=== PATIENT | female | born 1970 | race Caucasian/White ===

== ENCOUNTER 2021-05-06 02:55 | Observation (INO) ==
[2021-05-06] MEDS ORDERED: IOPAMIDOL 100 ML BOTTLE IV ONE (02:56)
--- NOTE | 2021-05-06 03:07 | Emergency Department Note ---
HPI General Chief complaint: Abdominal Pain Stated complaint: abd pain Time Seen by Provider: 05/06/21 03:07 Source: patient Mode of arrival: ambulatory Limitations: no limitations History of Present Illness HPI Narrative: 50-year-old female with no past medical history presenting with right upper quadrant abdominal pain. She states around 8:30 PM she developed sharp pain just below her rib cage on the right side. She endorses nausea and nonbloody, nonbilious emesis. Pain does not radiate. No shortness of breath, fever, dysuria, hematuria, or diarrhea. History of and hysterectomy, no other abdominal surgeries. Denies any known history of gallstone disease. She took Zofran and ibuprofen at home with some relief but the pain is coming back. Related Data Home Medications Medication Instructions Recorded Confirmed ibuprofen 600 mg tablet 600 mg PO QDAY PRN tab 01/14/18 03/14/21 calcium acetate PO QDAY 01/17/18 03/14/21 magnesium PO QDAY 01/17/18 03/14/21 aspirin 81 mg tablet,delayed 81 mg PO QDAY 03/14/21 03/14/21 release cholecalciferol (vitamin D3) 50 50 mcg PO QDAY 03/14/21 03/14/21 mcg (2,000 unit) capsule Allergies Allergy/AdvReac Type Severity Reaction Status Date / Time cat dander Allergy Unknown Sneezing Verified 03/14/21 10:13 hay Allergy Unknown Sneezing Uncoded 03/14/21 10:13 Review of Systems ROS ROS Narrative: Narrative: Constitutional: Denies fever or chills Cardiovascular: Denies chest pain Respiratory: Denies shortness of breath Gastrointestinal: Reports abdominal pain, nausea and vomiting; Denies diarrhea Genitourinary: Denies dysuria or hematuria Musculoskeletal: Denies back pain Integumentary: Denies rash Neurological: Denies headache PFSH Narrative Patient History Narrative: Narrative: Medical/Surgical/Family History All Active Problems (Updated 05/06/21 @ 06:39 by Jalen Maria MD) Acute calculous cholecystitis (Acute) Neck muscle spasm (Acute) Vitamin D deficiency (Acute) Fatigue (Acute) Cervical fusion syndrome (Chronic ~04/24/14) Migraines (Chronic) Insomnia (Chronic) Anxiety (Chronic) Medical History (Updated 05/06/21 @ 06:39 by Jalen Maria MD) Anxiety Cervical fusion syndrome (~04/24/14) Insomnia Migraines Surgical History History of hysterectomy (~10/05/13) Previous section (~04/29/12) Family History Grandfather Cancer Paternal Grandmother Dementia Paternal Stroke Paternal Father Hypertension Sister Thyroid disease Social History Smoking Status: Never smoker Alcohol Intake Frequency: holiday/special occasion only Substance Use: does not use Exam Narrative Narrative: Narrative: General Limitations: no limitations General appearance: Present alert and other (Appears uncomfortable) Head Head: Present atraumatic and normocephalic Eye Eye: Present normal appearance and EOMI; Absent scleral icterus or conjunctival injection ENT ENT: Present mucous membranes moist Neck Neck: Present normal inspection, full ROM and trachea midline Chest Chest: Present symmetric chest wall rise Adbominal Abdominal: Present soft and tenderness (Right upper quadrant tenderness to palpation); Absent distention, guarding, rebound or rigidity Extremities Extremities: Present normal inspection Neurological Neurological: Present alert and oriented X3; Absent motor sensory deficit Psychiatric Psychiatric: Present normal affect and normal mood Skin Skin: Present warm (WNL) and dry Course Consultations Consultation #1: Dr. Overton, general surgery Time: 04:20 Vital Signs Vital signs: Vital Signs Temperature 96.5 F L 05/06/21 02:56 Pulse Rate 98 H 05/06/21 02:56 Respiratory Rate 20 05/06/21 02:56 Blood Pressure 146/103 05/06/21 02:56 Pulse Oximetry (%) 100 05/06/21 02:56 Temperature 96.5 F L 05/06/21 02:56 Pulse Rate 70 05/06/21 05:49 Respiratory Rate 18 05/06/21 04:30 Blood Pressure 124/94 05/06/21 05:49 Pulse Oximetry (%) 100 05/06/21 05:[address] [facility] MDM Narrative Medical decision making narrative: 50-year-old female presenting with right upper quadrant abdominal pain. She does have moderate tenderness on exam without peritoneal signs. Concern for c holelithiasis or cholecystitis. IV Toradol, Zofran, and normal saline bolus ordered. Will obtain labs and CT abdomen to evaluate. 0640: Labs notable for a leukocytosis to 13.1. CT of the abdomen shows cholecystitis with a 3 mm stone in the gallbladder lumen and mild wall thickening. Patient received 2 mg of IV morphine x2 but is still havingpain. Fentanyl 75mcg ordered. Patient given 3.375g of IV Zosyn. I spoke with Dr. Overton of surgery who will evaluate the patient and admit. Patient made NPO. Lab Data Lab results reviewed: Yes I reviewed the patient's lab results. Result diagrams: 05/06/21 03:18 05/06/21 03:18 Labs: Lab Results 05/06/21 05/06/21 Range/Units 03:18 03:18 WBC 13.1 H (4.5-11.0) K/mcL RBC 4.95 (3.59-5.38) M/mcL Hgb 14.3 (11.2-15.7) g/dL Hct 43.1 (34.1-44.9) % MCV 87.1 (80.0-100.0) fL MCH 28.9 (26.0-34.0) pg MCHC 33.2 (31.0-36.0) g/dL RDW 12.3 (11.5-14.5) % Plt Count 312 (140-440) K/mcL MPV 8.7 (7.4-10.4) fL Neut % (Auto) 52.8 (38.0-78.0) % Lymph % (Auto) 37.5 (15.5-49.0) % [place] % (Auto) 7.0 (1.0-12.0) % Eos % (Auto) 2.4 (0.0-7.0) % Baso % (Auto) 0.3 (0.0-2.0) % Lymph # (Auto) 4.89 H (1.50-4.80) K/mcL [place] # (Auto) 0.91 H (0.10-0.90) K/mcL Eos # (Auto) 0.31 (0.00-0.70) K/mcL Baso # (Auto) 0.04 (0.00-0.30) K/mcL Absolute Neutrophils 6.90 (1.80-8.00) K/mcL Sodium 137 (133-145) mmol/L Potassium 4.2 (3.3-5.1) mmol/L Chloride 98 (96-108) mmol/L Carbon Dioxide 26 (22-30) mmol/L Anion Gap 13.0 (8.0-16.0) BUN 17 (6-20) mg/dL Creatinine 0.7 (0.6-1.1) mg/dL GFR Calculation 101 Glucose 104 (70-105) mg/dL Calcium 9.6 (8.6-10.4) mg/dL Total Bilirubin 0.5 (0.1-1.0) mg/dL AST 25 (<32) U/L ALT 28 (<40) U/L Alkaline Phosphatase 100 (39-117) U/L Total Protein 7.6 (5.9-8.4) gm/dL Albumin 4.3 (3.2-5.2) gm/dL Globulin 3.3 (2.2-3.7) gm/dL Albumin/Globulin Ratio 1.3 (1.0-2.3) Lipase 34 (7-60) U/L Radiology Data Radiology results reviewed: Yes I reviewed the patient's radiology results. Radiology results narrative: Ordering Physician:Jalen Maria M.D. Date of Service:05/06/21 Procedure(s):CT abdomen pelvis w con CLINICAL INFORMATION: Right upper quadrant pain and vomiting COMPARISON: None. TECHNIQUE: Following enteric contrast, 80 cc of Isovue-370 were injected intravenously, and 60 seconds later, 0.625 mm helical slices were obtained from the mid heart through the subtrochanteric regions. Following reconstruction, 2.5 mm sagittal, coronal and axial reformatted images were processed and reviewed at bone, lung and soft tissue windows. Five minutes later, 0.625 mm helical slices were obtained from the mid heart through the kidneys and viewed at soft tissue windows.The exam was performed using radiation dose optimization techniques including, but not limited to, automated exposure control, adjustment of the mA and/or kV according to patient size and use of iterative reconstruction technique. FINDINGS: The lung bases are clear. No effusions. The visualized heart is grossly normal. Abdominal images show the gallbladder is mildly enlarged with mild wall thickening. There is a single 3 mm cholesterol stone within the gallbladder body. The intrahepatic and common bile ducts are normal caliber: CBD is 6 mm. The liver, both kidneys, adrenal glands, spleen, pancreas and aorta, including aortic branches, are normal in size, configuration and attenuation without focal lesion. There is no free air, free fluid or adenopathy. Pelvic images show normal urinary bladder. Uterus is surgically absent. There is a 4 cm simple cyst on the retained left ovary. A 3.4 cm simple cyst is noted on the right ovary. The stomach, small bowel, appendix and large bowel are grossly normal. Bone windows show no osseous abnormality IMPRESSION: 1. Cholecystitis. Single 3 mm stone within the gallbladder lumen. 2. Uterus surgically absent. 4 cm simple cyst on the left ovary. 3.4 cm simple cyst on the right ovary. These do not require additional imaging follow-up Interpreted and Authenticated by: Amilcar Persaud 05/06/21 Discharge Plan Patient/Caregiver Discharge Instructions Pt seen by THEOLOGY TEACHER/PA only: No Clinical Impression: Acute calculous cholecystitis Patient Disposition: Xfer As Inpt ([facility]) Condition: Fair Follow up with: Jo Blackwell PA-C [Primary Care Provider] - Prescriptions: No Action ibuprofen 600 mg tablet 600 mg PO QDAY PRN0RF magnesium PO QDAY 0RF calcium acetate PO QDAY 0RF cholecalciferol (vitamin D3) 50 mcg (2,000 unit) capsule 50 mcg PO QDAY 0RF aspirin 81 mg tablet,delayed release (DR/EC) 81 mg PO QDAY 0RF
[2021-05-06] MEDS ORDERED: 0.9 % SODIUM CHLORIDE 1,000 ML IV ONE (03:11)
[2021-05-06] MEDS ORDERED: KETOROLAC 30 MG/ML VIAL IV ONE (03:11)
[2021-05-06] MEDS ORDERED: ONDANSETRON 4 MG/2 ML VIAL IV ONE ×2 (03:11→04:25)
[2021-05-06 03:48] LABS: Basophils # (Auto) 0.04 K/mcL (0.00-0.30); Basophils % (Auto) 0.3 % (0.0-2.0); Eosinophils # (Auto) 0.31 K/mcL (0.00-0.70); Eosinophils % (Auto) 2.4 % (0.0-7.0); Hematocrit 43.1 % (34.1-44.9); Hemoglobin 14.3 g/dL (11.2-15.7); Lymphocytes # (Auto) 4.89 K/mcL (1.50-4.80); Lymphocytes % (Auto) 37.5 % (15.5-49.0); Mean Cell Volume 87.1 fL (80.0-100.0); Mean Corpuscular HGB Conc 33.2 g/dL (31.0-36.0); Mean Platelet Volume 8.7 fL (7.4-10.4); Monocytes # (Auto) 0.91 K/mcL (0.10-0.90); Neutrophils % (Auto) 52.8 % (38.0-78.0); Platelet Count 312 K/mcL (140-440); RBC 4.95 M/mcL (3.59-5.38); Red Cell Distribution Width 12.3 % (11.5-14.5); WBC 13.1 K/mcL (4.5-11.0)
--- NOTE | 2021-05-06 03:49 | Cat Scan Report ---
CLINICAL INFORMATION: Right upper quadrant pain and vomiting COMPARISON: None. TECHNIQUE: Following enteric contrast, 80 cc of Isovue-370 were injected intravenously, and 60 seconds later, 0.625 mm helical slices were obtained from the mid heart through the subtrochanteric regions. Following reconstruction, 2.5 mm sagittal, coronal and axial reformatted images were processed and reviewed at bone, lung and soft tissue windows. Five minutes later, 0.625 mm helical slices were obtained from the mid heart through the kidneys and viewed at soft tissue windows.The exam was performed using radiation dose optimization techniques including, but not limited to, automated exposure control, adjustment of the mA and/or kV according to patient size and use of iterative reconstruction technique. FINDINGS: The lung bases are clear. No effusions. The visualized heart is grossly normal. Abdominal images show the gallbladder is mildly enlarged with mild wall thickening. There is a single 3 mm cholesterol stone within the gallbladder body. The intrahepatic and common bile ducts are normal caliber: CBD is 6 mm. The liver, both kidneys, adrenal glands, spleen, pancreas and aorta, including aortic branches, are normal in size, configuration and attenuation without focal lesion. There is no free air, free fluid or adenopathy. Pelvic images show normal urinary bladder. Uterus is surgically absent. There is a 4 cm simple cyst on the retained left ovary. A 3.4 cm simple cyst is noted on the right ovary. The stomach, small bowel, appendix and large bowel are grossly normal. Bone windows show no osseous abnormality IMPRESSION: 1. Cholecystitis. Single 3 mm stone within the gallbladder lumen. 2. Uterus surgically absent. 4 cm simple cyst on the left ovary. 3.4 cm simple cyst on the right ovary. These do not require additional imaging follow-up Interpreted and Authenticated by: Amilcar Persaud 05/06/21
[2021-05-06 04:02] LABS: ALT/SGPT 28 U/L (<40); AST/SGOT 25 U/L (<32); Albumin 4.3 gm/dL (3.2-5.2); Albumin/Globulin Ratio 1.3 (1.0-2.3); Alkaline Phosphatase 100 U/L (39-117); Bilirubin,Total 0.5 mg/dL (0.1-1.0); Blood Urea Nitrogen 17 mg/dL (6-20); Calcium 9.6 mg/dL (8.6-10.4); Carbon Dioxide 26 mmol/L (22-30); Chloride 98 mmol/L (96-108); Globulin 3.3 gm/dL (2.2-3.7); Glomerular Filtration Rate 101; Glucose 104 mg/dL (70-105)
[2021-05-06] MEDS ORDERED: morphine 2 MG/ML VIAL IV ONE ×2 (04:15→05:21)
[2021-05-06] MEDS ORDERED: PIPERACILLIN SODIUM/TAZOBACTAM 3.375 GM in DEXTROSE 5% IN WATER 50 ML IV ONE (04:15)
[2021-05-06] MEDS ORDERED: fentaNYL 100 MCG/2 ML VIAL IV ONE ×2 (05:48→12:50)
[2021-05-06] MEDS ORDERED: HYDROmorphone 0.5 MG/0.5 ML SYRINGE IV PRN ×2 (07:47→14:04)
[2021-05-06] MEDS ORDERED: ONDANSETRON 4 MG/2 ML VIAL IV PRN (07:49)
[2021-05-06] MEDS ORDERED: DEXTROSE 5%-LR 1,000 ML IV SCH (08:00)
[2021-05-06] MEDS ORDERED: HYDROmorphone 1 MG/ML SYRINGE ONE ×2 (08:17→12:50)
[2021-05-06] MEDS ORDERED: SCOPOLAMINE 1 PATCH PATCH TOPICAL ONE (08:41)
--- NOTE | 2021-05-06 08:51 | General Surgery Consult Note ---
HPI Data of Consult Patient: new to practice Consult date: 05/06/21 Requesting physician: Jalen Maria Primary Care Provider: Jo Blackwell PA-C Consult Narrative Chief complaint: RUQ Abdominal Pain Reason for consult: Acute Cholecystitis History of present illness: Sofia is seen in consultation today with a 6-8 hour history of intensifying RUQ and Upper Abdominal Pain. She came into the ER in the middle of the night and a CT scan was done demonstrating mild inflammatory changes around the gallbladder consistent with Cholecystitis. She recalls one prior similar bout of this 4-5 months ago that lasted several hours and then fully resolved. This has not improved. She denies any other episodes. Her health is otherwise excellent and she denies any cardiopulmonary issues. She is not on any oral anticoagulation. She has had a prior C Section and a prior Transvaginal Partial Hysterectomy. cc:: CC: Alfredo Overton MD Review of Systems All systems: reviewed and no additional remarkable complaints except as stated PFSH PFSH All Active Problems (Updated 05/06/21 @ 06:39 by Jalen Maria MD) Acute calculous cholecystitis (Acute) Neck muscle spasm (Acute) Vitamin D deficiency (Acute) Fatigue (Acute) Cervical fusion syndrome (Chronic ~04/24/14) Migraines (Chronic) Insomnia (Chronic) Anxiety (Chronic) Medical History (Updated 05/06/21 @ 06:39 by Jalen Maria MD) Anxiety Cervical fusion syndrome (~04/24/14) Insomnia Migraines Surgical History History of hysterectomy (~10/05/13) Previous section (~04/29/12) Family History Grandfather Cancer Paternal Grandmother Dementia Paternal Stroke Paternal Father Hypertension Sister Thyroid disease Social History marital status: other: Children-4 alcohol intake frequency: holiday/special occasion only substance use type: does not use MEDS/ALLERGIES Home Medications and Allergies Home Medications Medication Instructions Recorded Confirmed Type ibuprofen 600 mg tablet 600 mg PO QDAY tab 01/14/18 03/14/21 History calcium acetate PO QDAY 01/17/18 03/14/21 History magnesium PO QDAY 01/17/18 03/14/21 History cholecalciferol (vitamin D3) 50 50 mcg PO QDAY 03/14/21 03/14/21 History mcg (2,000 unit) capsule Allergies Allergy/AdvReac Type Severity Reaction Status Date / Time No Known Drug Allergies Allergy Unverified 05/06/21 08:07 Physical Examination Vital Signs Vital signs: Temp Pulse Resp BP Pulse Ox 98.7 F 82 20 140/72 98 05/06/21 07:30 05/06/21 07:30 05/06/21 07:30 05/06/21 07:30 05/06/21 07:30 General physical appearance General physical exam: well developed, well nourished and other (she appears uncomfortable ) Eyes Eye exam: normal ocular movement; negative icteric ENT ENT exam: normal pinna; negative nasal discharge Head Head exam IM: Present atraumatic, normal inspection and normocephalic Neck Neck exam: no masses, trachea midline and no lymphadenopathy Cardiovascular Cardiovascular exam IM: Present normal rate and rhythm and RRR Respiratory Respiratory exam: normal respiratory effort Abdomen Abdomen: Present soft (soft and non distended, TTP RUQ, no obvious peritoneal findings, no mass ) Integumentary Integumentary: Present other (normal appearing intact skin ) Neurologic Neurologic: Present other (grossly intact, fully alert and conversant ) Psychiatric Psychiatric: Present oriented to time, oriented to person and oriented to place Results Labs Result diagrams: 05/06/21 03:18 05/06/21 03:18 Labs: Abnormal lab results 05/06/21 Range/Units 03:18 WBC 13.1 H (4.5-11.0) K/mcL Lymph # (Auto) 4.89 H (1.50-4.80) K/mcL [place] # (Auto) 0.91 H (0.10-0.90) K/mcL Diabetes panel 05/06/21 Range/Units 03:18 Sodium 137 (133-145) mmol/L Potassium 4.2 (3.3-5.1) mmol/L Chloride 98 (96-108) mmol/L Carbon Dioxide 26 (22-30) mmol/L BUN 17 (6-20) mg/dL Creatinine 0.7 (0.6-1.1) mg/dL Glucose 104 (70-105) mg/dL Calcium 9.6 (8.6-10.4) mg/dL AST 25 (<32) U/L ALT 28 (<40) U/L Alkaline Phosphatase 100 (39-117) U/L Total Protein 7.6 (5.9-8.4) gm/dL Albumin 4.3 (3.2-5.2) gm/dL Calcium panel 05/06/21 Range/Units 03:18 Calcium 9.6 (8.6-10.4) mg/dL Albumin 4.3 (3.2-5.2) gm/dL Pituitary panel 05/06/21 Range/Units 03:18 Sodium 137 (133-145) mmol/L Potassium 4.2 (3.3-5.1) mmol/L Chloride 98 (96-108) mmol/L Carbon Dioxide 26 (22-30) mmol/L BUN 17 (6-20) mg/dL Creatinine 0.7 (0.6-1.1) mg/dL Glucose 104 (70-105) mg/dL Calcium 9.6 (8.6-10.4) mg/dL Adrenal panel 05/06/21 Range/Units 03:18 Sodium 137 (133-145) mmol/L Potassium 4.2 (3.3-5.1) mmol/L Chloride 98 (96-108) mmol/L Carbon Dioxide 26 (22-30) mmol/L BUN 17 (6-20) mg/dL Creatinine 0.7 (0.6-1.1) mg/dL Glucose 104 (70-105) mg/dL Calcium 9.6 (8.6-10.4) mg/dL Total Bilirubin 0.5 (0.1-1.0) mg/dL AST 25 (<32) U/L ALT 28 (<40) U/L Alkaline Phosphatase 100 (39-117) U/L Total Protein 7.6 (5.9-8.4) gm/dL Albumin 4.3 (3.2-5.2) gm/dL All other labs normal. A/P Narrative A/P Narrative: Acute Cholecystitis Recommend proceeding to the OR [facility] for Cholecystectomy Risks, benefits, potential complications and alternative treatment options are all discussed and reviewed at length including but not limited to possible conversion to open, partial or subtotal fenestrating cholecystectomy, drain placement, injury to surrounding structures, unexpected findings, and others as well NPO, IVF, IV ABs and pain control until surgery Time Spent With Patient Time: Total time spent is greater than 50% in coordination of care (as documented) at patient's floor/unit and/or counseling patient:
[2021-05-06] MEDS ORDERED: IPRATROPIUM/ALBUTEROL 3 ML AMPUL.NEB NEB PRN ×2 (10:14→14:04)
[2021-05-06] MEDS: HYDROmorphone 0.5 MG/0.5 ML SYRINGE IV PRN ×2 (10:20→11:25)
[2021-05-06] MEDS: PIPERACILLIN SODIUM/TAZOBACTAM 3.375 GM in DEXTROSE 5% IN WATER 50 ML IV SCH ×3 (11:25→23:55)
[2021-05-06] MEDS ORDERED: KETAMINE 50 MG/ML Syringe (ANEST) IV ONE (12:50)
[2021-05-06] MEDS ORDERED: GLYCOPYRROLATE 0.2 MG/ML VIAL IV ONE (12:50)
[2021-05-06] MEDS ORDERED: PROPOFOL 500 MG/50 ML BOTTLE IV ONE (12:50)
[2021-05-06] MEDS ORDERED: MIDAZOLAM 2 MG/2 ML VIAL ONE (12:50)
[2021-05-06] MEDS ORDERED: SUGAMMADEX SODIUM 200 MG/2 ML VIAL IV ONE (12:50)
[2021-05-06] MEDS ORDERED: TRANEXAMIC ACID 1,000 MG/10 ML VIAL ONE (12:50)
[2021-05-06] MEDS ORDERED: SUCCINYLCHOLINE 20 MG/ML ML IV ONE (12:50)
[2021-05-06] MEDS ORDERED: DEXAMETHASONE 10 MG/ML VIAL ONE (12:50)
[2021-05-06] MEDS ORDERED: ROCURONIUM 10 MG/ML ML IV ONE (12:50)
[2021-05-06] MEDS ORDERED: MAGNESIUM SULFATE 2 GM/50 ML BAG IV ONE (12:50)
[2021-05-06] MEDS ORDERED: FAMOTIDINE/PF 20 MG/2 ML VIAL IV ONE (12:50)
[2021-05-06] MEDS ORDERED: LIDOCAINE HCL/PF 100 MG/5 ML SYRINGE IV ONE (12:50)
[2021-05-06] MEDS ORDERED: ONDANSETRON 4 MG/2 ML VIAL ONE (12:50)
[2021-05-06] MEDS ORDERED: diphenhydrAMINE 50 MG/ML VIAL ONE (12:50)
[2021-05-06] MEDS ORDERED: KETOROLAC 15 MG/ML VIAL ONE (12:50)
[2021-05-06] MEDS ORDERED: FLUMAZENIL 0.1 MG/ML ML IV PRN (14:04)
[2021-05-06] MEDS ORDERED: LABETALOL 5 MG/ML ML IV PRN (14:04)
[2021-05-06] MEDS ORDERED: METOPROLOL TARTRATE 5 MG/5 ML VIAL IV PRN (14:04)
[2021-05-06] MEDS ORDERED: BENZOCAINE/MENTHOL 1 LOZENGE PO PRN (14:04)
[2021-05-06] MEDS ORDERED: ACETAMINOPHEN 1,000 MG/100 ML BAG IV ONE (14:04)
[2021-05-06] MEDS ORDERED: NALOXONE HCL 0.4 MG/ML VIAL IV PRN (14:04)
[2021-05-06] MEDS ORDERED: LACTATED RINGERS 250 ML IV PRN (14:04)
[2021-05-06] MEDS ORDERED: PROMETHAZINE 25 MG/ML VIAL IV PRN (14:04)
[2021-05-06] MEDS ORDERED: METHOCARBAMOL 1,000 MG/10 ML VIAL IV PRN (14:04)
[2021-05-06] MEDS ORDERED: LACTATED RINGERS 1,000 ML IV SCH (14:15)
[2021-05-06] MEDS ORDERED: BUPIVACAINE W/EPI 0.5% 50 ML VIAL IJ ONE (14:34)
[2021-05-06] MEDS ORDERED: oxyCODONE HCL 5 MG TABLET PO PRN (15:16)
--- NOTE | 2021-05-06 15:16 | Brief Operative Note ---
Brief Operative Note Date of procedure: 05/06/21 Pre-op diagnosis: Acute Cholecystitis Post-op diagnosis: same Procedure: Laparoscopic Cholecystectomy Grafts/Implants: No Anesthesia: GETA Findings: Severe Acute Cholecystitis Complications: none Surgeon: Alfredo Overton Estimated blood loss (cc): 20 Specimens Removed/Pathology: other (gallbladder ) Condition: stable Disposition: PACU
[2021-05-06] MEDS: fentaNYL 100 MCG/2 ML VIAL IV PRN ×3 (15:21→15:38)
--- NOTE | 2021-05-06 15:45 | EKG ---
[facility] Test Date: 2021-05-06 Pat Name: Sofia York Department: [facility] Room: 131 Gender: Female Electrical Assembler: : 1970 Requested By: Luis Vera Order Number: [id number] Reading MD: Hernan Stewart Measurements Intervals Breaks Rate: 80 P: 38 PA: 133 QRS: -37 QRSD: 102 T: 25 QT: 403 QTc: 465 Interpretive Statements Sinus rhythm Left axis deviation Electronically Signed On 05-06-2021 15:45:20 PST by Hernan Stewart /store/M0/[id number]
[2021-05-06] MEDS: DEXTROSE 5%-LR 1,000 ML IV SCH (16:07)
[2021-05-07] MEDS: DEXTROSE 5%-LR 1,000 ML IV SCH (03:44)
[2021-05-07] MEDS: PIPERACILLIN SODIUM/TAZOBACTAM 3.375 GM in DEXTROSE 5% IN WATER 50 ML IV SCH ×2 (05:28→12:23)
--- NOTE | 2021-05-07 08:13 | Operative Note ---
DATE OF OPERATION: 05/06/2021 PREOPERATIVE DIAGNOSIS: Acute cholecystitis. POSTOPERATIVE DIAGNOSIS: Acute cholecystitis. OPERATIVE PROCEDURE: Laparoscopic cholecystectomy. SURGEON: Alfredo Overton MD ANESTHESIA: General. PREOPERATIVE MEDICATIONS: Zosyn 3.375 g IV. INDICATIONS: The patient is a 50-year-old female who presented to the Emergency Room in the middle of the night with increasingly intense bouts of upper abdominal/right upper quadrant pain and discomfort. She underwent imaging including a CT scan, which demonstrated inflammatory changes around the gallbladder, consistent with acute cholecystitis. She also had a mildly elevated white count. We saw her in consultation and agreed with the recommendation for surgery. Risks, benefits, potential complications, and alternative treatment options were all discussed at length. These include, but not limited to bleeding, infection, cosmetic dissatisfaction, abnormal scarring, potential injury to surrounding structures, possibility of partial, subtotal or fenestrating cholecystectomy, the potential for conversion to an open procedure, possible need for drain placement, secondary procedures and other issues as well as the potential option to avoid surgery utilizing percutaneous drainage techniques and other concerns. We strongly recommended surgery, however, and agreed with that recommendation. She wished to pursue this as well. DESCRIPTION OF PROCEDURE: The patient was taken to the operating room and placed supine on the OR table, placed under general anesthesia and intubated. Bilateral SCDs were applied. All pressure sensitive areas were carefully padded. Arms were placed out on arm boards under the direction of the OR team after she was carefully positioned on the table. The abdomen was then widely prepped and draped in sterile fashion. Procedure began with access of the peritoneal cavity utilizing a 0-degree, 5-mm scope through a Visiport in the right upper abdomen. Once we obtained a pneumoperitoneum and confirmed appropriate peritoneal access, we examined the area of access to make sure there was no evidence of injury; none was seen. We then changed out the 0-degree scope for a 30-degree scope and placed our remaining trocars. This included a 5 mm supraumbilical trocar, a 12 mm subxiphoid trocar and an additional 5 mm right upper quadrant working trocar. The camera was resited to the periumbilical site. The patient was then placed in a reverse Trendelenburg position and airplaned towards the left side. The fundus of the gallbladder could be identified. It was tremendously inflamed and tense and quite distended and indurated. I was then able to grasp and therefore, utilized a needle compression device to aspirate 50-100 mL of somewhat turbid-looking bile out of the gallbladder, which loosened things up enough for us to grasp the fundus and retract it up over the liver towards the right shoulder. There were fairly dense adhesions between the gallbladder and the duodenum. These were taken down sharply as well as with gentle traction, making sure we were pulling only on the gallbladder and never on the duodenum itself. No thermal energy was used here at any point. We were gradually able to expose the gallbladder along its entire length and obtain adequate retraction and exposure to the loy and the area of the hepatocystic triangle. There was tremendous edema and inflammation throughout the gallbladder, it was severely inflamed and the dissection in the hepatocystic triangle was fairly difficult given the edema and scarring. I was gradually able to delineate the lateral aspect of the infundibulum on the right side and then followed this down to what appeared to be the neck tapering into the cystic duct. The common bile duct could be seen coursing from the duodenum up to the loy. At this point, I was then able to come across anteriorly and began to dissect out the hepatocystic triangle. There was tremendous distention of the lower aspect of the gallbladder, the infundibulum and the body here and the entire medial aspect of this was densely adherent to the right hepatic artery, which had to be very carefully dissected down and away to avoid injury to it, but gradually I was able to develop the space and elevate the gallbladder away from it. Small branches appeared to be coursing from it up into the gallbladder rather than directly in a single cystic artery. These were taken down high up on the gallbladder, utilizing hook cautery without difficulty. Gradually, I was able to clear the space off and come confirmed that there were no other interposed medial structures here, and again the entire anterior surface of the right hepatic artery was fully exposed to facilitate this dissection. Gradually, I was able to clear out this entire area and perform a very extensive cystic plate dissection and thereby obtained a full critical view of safety. Once this was complete and I felt that we had ruled out the possibility that there was any misidentification of anatomy or any other interposed structures at risk, we went ahead and transected the junction point of the neck of the gallbladder with the cystic duct, making sure that the stones that had been lodged here were milked back up into the body of the gallbladder. This was transected with a single firing of the 35 mm endovascular ЮЛИЯ stapler without difficulty. The neck of the gallbladder was then grasped and retracted towards the right shoulder as well and at this point, we were able to very quickly dissect out the remainder of the gallbladder as much of this dissection had already been done. The gallbladder was then placed in an EndoCatch and removed through the subxiphoid trocar under direct vision without difficulty. It was examined on the back table and sent to pathology. Next, we irrigated the area out gently and made sure there was no active bleeding or hemorrhage. There was some oozing along the dissection bed and some Surgicel and Lisa powder brought in as topical hemostatics. There was no focal hemorrhage of significance and the cystic duct stump staple line appeared to be well hemostatic as well. We irrigated out extensively. There was no spillage of bile at any time and I elected, therefore, to not place any drains at this point and we irrigated out a final time and then removed the 12 mm trocar and closed this at the fascial level utilizing the inlet fascial closure device with several 0 Vicryl sutures without difficulty. This was examined closely to make sure it appeared to be fully hemostatic. It did. We then removed our remaining trocars under direct vision, and relieved pneumoperitoneum. The incisions were then closed with interrupted 3-0 Vicryl and 4-0 Monocryl sutures, respectively. Steri-Strips and sterile dressings were applied. The patient was awakened, extubated, and transferred to PACU in satisfactory condition. There were no apparent complications or issues. Sponge, needle and instrument counts were correct. Findings were as discussed above. [email or web address] Job ID: [id number] Doc ID: [id number] Alfredo Overton M.D.
[2021-05-07] MEDS ORDERED: ACETAMINOPHEN 325 MG TABLET PO ONE (10:35)
--- NOTE | 2021-05-07 11:10 | General Surgery Progress Note ---
SUBJECTIVE Subjective Patient information: Note initiated : 05/07/21 at 11:06 am Service Date, if different from initiated Date: [] Patient: Sofia Mei 50 y/o F admitted on 05/06/21 for abd pain. Chief Complaint: [Post Lap Cholecystectomy] She feels a ton better this am and is doing much better. She is wanting to go home and feels ready to do so Constitutional Vitals: Vital Signs Temp Pulse Resp BP Pulse Ox 97.7 F 75 20 122/62 98 05/07/21 08:00 05/07/21 08:00 05/07/21 08:00 05/07/21 08:00 05/07/21 08:00 Period Temp Pulse Resp BP Sys/Ventura Pulse Ox Last 24 Hr 96.9 F-99.2 F 75-101 12-20 109-150/51-88 94-99 Intake and Output 05/06/21 05/07/21 05/07/21 21:59 05:59 13:59 Intake Total 990 1721 1050 Balance 990 1721 1050 Weight 193 lb 14.4 oz Intake & Output: Intake & Output 05/06/21 05/07/21 05/07/21 21:59 05:59 13:59 Intake Total 990 1721 1050 Balance 990 1721 1050 Weight 193 lb 14.4 oz Intake: IV 929 629 [id number] Dextrose 5%-Lactated Ringers 1, 871 1000 000 ml @ 100 mls/hr IV .Q10H [facility] Rx#:[id number] Zosyn 3.375 gm In Dextrose 5% 50 50 50 in Water 50 ml @ 100 mls/hr IV Q6H [facility] Rx#:[id number] Oral 840 800 Other: # Voids 1 2 1 General appearance: no acute distress Exam: fully alert and conversant, looks well Respiratory Additional comments: normal respiratory effort without distress Cardiovascular Cardiovascular exam: Present normal rate and rhythm and RRR GI/Abdominal Additional comments: trocar sites all look good, belly is soft and non distended Extremities Exam Additional comments: well perfused Neurological Exam Neurological exam: Present oriented X3 A/P Narrative A/P Narrative: Post Lap Cholecystectomy for Severe Acute Cholecystitis Doing Well Home Today with Clinic F/U in the next 1-2 weeks, contact information is provided and discharge instructions are reviewed Time Spent With Patient Time: Total time spent is greater than 50% in coordination of care (as documented) at patient's floor/unit and/or counseling patient:
== END 2021-05-07 11:42 | disposition home or self-care (01) ==
LOC: ED 02:55 → MEDSUR 02:55
PROVIDERS: ADMIT Surgery Surgical Critical Care; ATTEND Surgery Surgical Critical Care